=== PATIENT | female | born 1960 | race African-American/Black ===

== ENCOUNTER 2017-07-31 10:49 | Emergency (ER) | payer OTHER, MEDICAID ==
[~2017-07-31] VITALS: Ht 167.6 cm; Wt 100.0 kg
[~2017-07-31 10:49] MED LIST: HYDR-3535 PO
[2017-07-31 11:03] VITALS: BP 143/89; PULSE 103; RESP 22; TEMP 99.7; O2SAT 97
--- NOTE | 2017-07-31 11:10 | PD ---
HPI Chief Complaint: Respiratory Distress Time Seen by Provider: 11:06 Travel History International Travel<30 days: No Contact w/Intl Traveler<30days: No Traveled to known affect area: No History of Present Illness HPI 57-year-old Afro-[place] female transferred here from the [place] clinic with several day history of increasing shortness of breath and wheezing. Patient has history of COPD she only uses Ventolin when necessary. Patient states she has a "raggedy nebulizer at home". Patient states she quit smoking several years ago. Patient states she only gets like this when she has an illness. She has had some mild sore throat but no significant fever. She denies chest pain other than from coughing, no nausea, vomiting, ear pain, headache, or productive cough. Patient was given 3 nebulizers en route as well as 125 Solu- Medrol by EMS. Patient is able to speak in full sentences but has audible wheezing. She is allergic to morphine, oxycodone, prednisone. PFSH Past Medical History Arthritis: Yes Asthma: Yes Autoimmune Disease: No Blood Disorders: No Bipolar Disorder: Yes Anxiety: Yes Depression: Yes Heart Rhythm Problems: No Cancer: Yes (RT BREAST) Cardiovascular Problems: Yes High Cholesterol: No Chest Pain: Yes Congestive Heart Failure: No Cirrhosis: Yes COPD: No Cerebrovascular Accident: No Diabetes: No Diminished Hearing: No Endocrine: No Gastrointestinal Disorders: Yes GERD: Yes Genitourinary: Yes Headaches: Yes (2007) Hepatitis: Yes (C) Hiatal Hernia: No Hypertension: No Kidney Stones: No Musculoskeletal: Yes Neurologic: Yes Psychiatric: Yes (PTSD) Reproductive: No Respiratory: Yes (asthma) Migraines: No Myocardial Infarction: No Renal Failure: No Seizures: Yes (2007) Sleep Apnea: No Thyroid Disease: No Ulcer: No ?: Not Menopausal: Yes : 3 Para: 3 Miscarriage: 0 : 0 Tubal Ligation: Yes Past Surgical History Abdominal Surgery: Yes Appendectomy: No Cardiac Surgery: No Section: Yes (x3) Cholecystectomy: No Ear Surgery: No Endocrine Surgery: No Eye Surgery: No Genitourinary Surgery: No Gynecologic Surgery: Yes Hysterectomy: Yes Oral Surgery: No Thoracic Surgery: No Tonsillectomy: Yes Other Surgery: Yes Social History Alcohol Use: Yes (OCCASIONALLY) Tobacco Use: Yes (< 1/2 PPD) Substance Use: No Allergies-Medications (Allergen,Severity, Reaction): Coded Allergies: morphine (Unverified Allergy, Severe, 07/31/17) prednisone (Unverified Allergy, Severe, BLOOD PRESSURE GOES HIGH, 07/31/17 ) Influenza Virus Vaccines (Verified Allergy, Unknown, 07/31/17) oxycodone (Unverified Adverse Reaction, Severe, PSYCHOTIC REACTION, ) tramadol (Verified Adverse Reaction, Severe, Psychosis, 07/31/17) ledipasvir (Verified Adverse Reaction, Intermediate, Diarrhea, 07/31/17) sofosbuvir (Verified Adverse Reaction, Intermediate, Diarrhea, 07/31/17) NSAIDS (Non-Steroidal Anti-Inflamma (Verified Adverse Reaction, Mild, ) abd pain meloxicam (Verified Adverse Reaction, Unknown, 07/31/17) abd pain Reported Meds & Prescriptions Reported Meds & Active Scripts Active Dexamethasone 4 Mg Tab 4 Mg PO BID Azithromycin 500 Mg Tab 500 Mg PO DAILY Nebulizer 1 Mis Mis Ea .ROUTE DIRECTED Ipratropium Neb (Ipratropium [place]) 0.5 Mg/2.5 Ml Amp 0.5 Mg NEB Q6HR NEB PRN Albuterol Neb (Albuterol Sulfate) 2.5 Mg/3 Ml Neb 2.5 Mg NEB Q4HR NEB PRN Ventolin Hfa 18 GM Inh (Albuterol Sulfate) 90 Mcg/Act Aer 2 Puff INH Q4-6H PRN Flovent Hfa 12 GM Inh (Fluticasone Propionate) 220 Mcg/Act Inh 1 Puff INH BID Use daily at the same time. Reported Omeprazole 20 Mg Tab 20 Mg PO DAILY Diclo Gel Topical (Diclofenac Sodium) 1% Gel 1 Applic TOPICAL QID Symbicort Inh (Budesonide/Formoterol Fumarate) 80-4.5 Mcg/Act Aero 2 Puff INH Q12HR Quetiapine (Quetiapine Fumarate) 100 Mg Tab 100 Mg PO HS Fluoxetine (Fluoxetine HCl) 20 Mg Capsule 40 Mg PO DAILY [place] Carbonate 300 Mg Cap 300 Mg PO HS Hydrocodone-Acetaminophen 10-325 mg Tab 1 Tab PO Q6H PRN Ventolin Hfa 18 GM Inh (Albuterol Sulfate) 90 Mcg/Act Aer 2 Puff INH Q4-6H PRN Review of Systems Except as stated in HPI: all other systems reviewed are Neg General / Constitutional: No: Fever, Chills Eyes: No: Visual changes HENT: Positive: Sore Throat, Rhinitis, Rhinorrhea, Congestion, No: Headaches, Vertigo, Lightheadedness, Nosebleed, Neck Stiffness, Neck Pain, Dental Difficulties, Earache Cardiovascular: No: Chest Pain or Discomfort Respiratory: Positive: Cough, Shortness of Breath, Wheezing, Orthopnea, No: Sneezing, Hemoptysis, Stridor, Night Sweats, Pleuritic Pain Gastrointestinal: No: Abdominal Pain Genitourinary: No: Dysuria Musculoskeletal: No: Pain Skin: No Rash Neurologic: No: Weakness Psychiatric: No: Depression Endocrine: No: Polydipsia Hematologic/Lymphatic: No: Easy Bruising Physical Exam Narrative GENERAL: Patient appears in mild respiratory distress. SKIN: Warm and dry. Normal color. Normal turgor. No diaphoresis. HEAD: Atraumatic. Normocephalic. EYES: Pupils equal and round. No scleral icterus. No injection or drainage. ENT: No nasal bleeding or discharge. Mucous membranes pink and moist. TMs are clear bilaterally. No sinus tenderness to palpation or percussion. Pharynx appears unremarkable without significant erythema or obvious postnasal drip. No significant lymphadenopathy, and uvula is midline. NECK: Trachea midline. Supple and nontender. CARDIOVASCULAR: Regular rate and rhythm. RESPIRATORY: No accessory muscle use. Moderate diffuse wheezing throughout to auscultation. No rales or rhonchi. Breath sounds equal bilaterally. GASTROINTESTINAL: Abdomen soft, non-tender, nondistended. Hepatic and splenic margins not palpable. MUSCULOSKELETAL: Extremities without clubbing, cyanosis, or edema. No obvious deformities. NEUROLOGICAL: Awake and alert. No obvious cranial nerve deficits. Motor grossly within normal limits. Five out of 5 muscle strength in the arms and legs. Normal speech. PSYCHIATRIC: Appropriate mood and affect; insight and judgment normal. Data Data Last Documented VS Vital Signs Date Time Temp Pulse Resp B/P (MAP) Pulse Ox O2 Delivery O2 Flow Rate FiO2 07/31/17 11:29 98 Room Air 07/31/17 11:03 99.7 103 22 143/89 (107) Orders Orders Complete Blood Count With Diff (07/31/17 11:10) Comprehensive Metabolic Panel (07/31/17 11:10) Influenzae A/B Antigen (07/31/17 11:10) Iv Access Insert/Monitor (07/31/17 11:10) Ecg Monitoring (07/31/17 11:10) Oximetry (07/31/17 11:10) Oxygen Administration (07/31/17 11:10) Chest, Pa & Lat (07/31/17 11:10) Sodium Chloride 0.9% Flush (Ns Flush) (07/31/17 11:15) Albuterol-Ipratropium Neb (Duoneb Neb) (07/31/17 11:15) Azithromycin (Zithromax) (07/31/17 11:15) Tramadol (Ultram) (07/31/17 11:15) Ceftriaxone Inj (Rocephin Inj) (07/31/17 11:15) Acetamin-Hydrocod 325-10 Mg ([place] 10-32 (07/31/17 12:00) Labs Laboratory Tests Test 07/31/17 11:15 White Blood Count 10.4 TH/MM3 Red Blood Count 5.33 MIL/MM3 Hemoglobin 13.6 GM/DL Hematocrit 42.0 % Mean Corpuscular Volume 78.9 FL Mean Corpuscular Hemoglobin 25.5 PG Mean Corpuscular Hemoglobin Concent 32.3 % Red Cell Distribution Width 15.7 % Platelet Count 254 TH/MM3 Mean Platelet Volume 8.1 FL Neutrophils (%) (Auto) 63.2 % Lymphocytes (%) (Auto) 26.8 % Monocytes (%) (Auto) 9.0 % Eosinophils (%) (Auto) 0.7 % Basophils (%) (Auto) 0.3 % Neutrophils # (Auto) 6.6 TH/MM3 Lymphocytes # (Auto) 2.8 TH/MM3 Monocytes # (Auto) 0.9 TH/MM3 Eosinophils # (Auto) 0.1 TH/MM3 Basophils # (Auto) 0.0 TH/MM3 CBC Comment DIFF FINAL Differential Comment Blood Urea Nitrogen 16 MG/DL Creatinine 0.79 MG/DL Random Glucose 90 MG/DL Total Protein 7.7 GM/DL Albumin 3.6 GM/DL Calcium Level 8.6 MG/DL Alkaline Phosphatase 86 U/L Aspartate Amino Transf (AST/SGOT) 26 U/L Alanine Aminotransferase (ALT/SGPT) 36 U/L Total Bilirubin 0.4 MG/DL Sodium Level 140 MEQ/L Potassium Level 4.1 MEQ/L Chloride Level 103 MEQ/L Carbon Dioxide Level 31.0 MEQ/L Anion Gap 6 MEQ/L Estimat Glomerular Filtration Rate 91 ML/MIN [facility] Medical Decision Making Medical Screen Exam Complete: Yes Emergency Medical Condition: Yes Medical Record Reviewed: Yes Differential Diagnosis Acute wheezy bronchitis. COPD with exacerbation. Wheezing. Narrative Course Patient appears medically stable at time of exam. Labs ordered include CBC, CMP, and rapid influenza. Chest x-ray PA and lateral is ordered. IV access is obtained patient is given 1000 mg Rocephin IV. Patient is given azithromycin 500 mg by mouth. Patient is given DuoNeb 3. Patient has already received Solu-Medrol 125 mg IV from EMS. CBC is unremarkable with no significant leukocytosis. CMP is unremarkable. Chest x-ray is read as negative by radiologist. Rapid influenza is negative. Patient is improved after the duo nebs and Solu-Medrol. Patient will be continued on dexamethasone grams twice a day 5 days. Patient is started on Flovent HFA 1 puff twice a day. Patient is given azithromycin 500 mg daily 5 days. Patient is given a refill of her Ventolin metered-dose inhaler, 2 puffs every 4- 6 hours when necessary wheezing and shortness of breath. Patient is given a prescription for new nebulizer to be used as directed. Patient is given albuterol nebulizer unit dose vials one every 4 hours when necessary shortness of breath. Patient also given ipratropium nebulizer unit dose vials one every 6 hours when necessary #120. Patient should follow-up with the [place] clinic next week or return to emergency department if symptoms worsen as needed. Diagnosis Primary Impression: Acute wheezy bronchitis Additional Impression: COPD with acute exacerbation Referrals: [place] [facility] Patient Instructions: General Instructions Med/Other Pt SpecificInfo: Prescription(s) given Scripts Dexamethasone (Dexamethasone) 4 Mg Tab 4 MG PO BID, #10 TAB 0 Refills Prov: Lucila Cameron MD 07/31/17 Azithromycin (Azithromycin) 500 Mg Tab 500 MG PO DAILY for Infection, #5 TAB 0 Refills Prov: Lucila Cameron MD 07/31/17 Nebulizer (Nebulizer) 1 Mis Mis EA .ROUTE DIRECTED for Breathing Treatment, #1 0 Refills Prov: Lucila Cameron MD 07/31/17 Ipratropium Neb (Ipratropium Neb) 0.5 Mg/2.5 Ml Amp 0.5 MG NEB Q6HR NEB Y for SHORTNESS OF BREATH, #120 NEBULE 0 Refills Prov: Lucila Cameron MD 07/31/17 Albuterol Neb (Albuterol Neb) 2.5 Mg/3 Ml Neb 2.5 MG NEB Q4HR NEB Y for SHORTNESS OF BREATH, #60 NEBULE 0 Refills Prov: Lucila Cameron MD 07/31/17 Albuterol 18 GM Inh (Ventolin Hfa 18 GM Inh) 90 Mcg/Act Aer 2 PUFF INH Q4-6H Y for SHORTNESS OF BREATH, #1 INHALER 0 Refills Prov: Lucila Cameron MD 07/31/17 Fluticasone 12 GM Inh (Flovent Hfa 12 GM Inh) 220 Mcg/Act Inh 1 PUFF INH BID for Asthma Management, #1 INHALER 0 Refills Use daily at the same time. Prov: Lucila Cameron MD 07/31/17 Disposition: 01 DISCHARGE HOME Condition: Stable Jason Curiel Jul 31, 2017 11:10
[2017-07-31] MEDS ORDERED: VENTAER INH ×2 (11:14→12:16)
[2017-07-31] MEDS ORDERED: cefTRIAXone INJ 1,000 MG in SODIUM CHLORIDE 0.9% INJ 100 ML IV ONE (11:15)
[2017-07-31] MEDS ORDERED: SODIUM CHLORIDE 0.9% FLUSH 10 ML FLUSH IVF PRN (11:15)
[2017-07-31] MEDS ORDERED: AZITHROMYCIN 250 MG TAB PO ONE (11:15)
[2017-07-31] MEDS ORDERED: traMADol HCL 50 MG TAB PO ONE (11:15)
[2017-07-31 11:31] LABS: AUTOMATED NEUTROPHIL # 6.6 TH/MM3 (1.8-7.7); BASOPHIL % 0.3 % (0.0-2.0); EOSINOPHIL # 0.1 TH/MM3 (0-0.4); EOSINOPHIL % 0.7 % (0.0-4.0); HEMO FLAGS DIFF FINAL; LYMPH % 26.8 % (9.0-44.0); LYMPHOCYTE # 2.8 TH/MM3 (1.0-4.8); MEAN CELL VOLUME 78.9 FL (80.0-100.0); MEAN CORPUSCULAR HEMOGLOBIN 25.5 PG (27.0-34.0); MEAN CORPUSCULAR HGB CONC 32.3 % (32.0-36.0); NEUT % 63.2 % (16.0-70.0); PLATELET COUNT 254 TH/MM3 (150-450); RED BLOOD COUNT 5.33 MIL/MM3 (4.00-5.30); RED CELL DISTRIBUTION WIDTH 15.7 % (11.6-17.2); WHITE BLOOD COUNT 10.4 TH/MM3 (4.0-11.0)
[2017-07-31] MEDS ORDERED: QUET1TAB8 PO (11:36)
[2017-07-31] MEDS ORDERED: SYMB80AE INH (11:36)
[2017-07-31] MEDS ORDERED: FLUO20CA12 PO (11:36)
[2017-07-31] MEDS ORDERED: LITH300C2 PO (11:36)
[2017-07-31] MEDS ORDERED: DICL1KIT5 TOPICAL (11:36)
[2017-07-31] MEDS ORDERED: HYDR-3583 PO (11:36)
[2017-07-31] MEDS ORDERED: OMEP20TA93 PO (11:36)
--- NOTE | 2017-07-31 11:41 | RADRPT ---
EXAM DATE/TIME: 07/31/2017 11:26 [place] COMPARISON: No previous studies available for comparison. INDICATIONS : Short of breath. MEDICAL HISTORY : Asthma SURGICAL HISTORY : None. ENCOUNTER: Initial ACUITY: 1 day PAIN SCORE: 0/10 LOCATION: Bilateral chest FINDINGS: PA and lateral views of the chest demonstrate the lungs to be symmetrically aerated without evidence of mass, infiltrate or effusion. The cardiomediastinal contours are unremarkable. Osseous structure s are intact. CONCLUSION: Normal examination. Raul Wheeler MD on July 31, 2017 at 11:38 Board Certified Radiologist. This report was verified electronically.
[2017-07-31] MEDS: RESP: ALBUTEROL 2.5 MG/IPRATROPIUM 0.5 MG NEB (SCH) INH ×3 (11:45→11:48)
[2017-07-31 11:47] LABS: ALT (GPT) 36 U/L (10-53); ANION GAP 6 MEQ/L (5-15); AST (GOT) 26 U/L (15-37); BLOOD UREA NITROGEN 16 MG/DL (7-18); CHLORIDE 103 MEQ/L (98-107); GLOMERULAR FILTRATION RATE 91 ML/MIN (>89); POTASSIUM 4.1 MEQ/L (3.5-5.1); SODIUM (NA) 140 MEQ/L (136-145)
[2017-07-31 11:50] LABS: ALKALINE PHOSPHATASE 86 U/L (45-117); TOTAL BILIRUBIN ADULT 0.4 MG/DL (0.2-1.0)
[2017-07-31] MEDS ORDERED: ACETAMINOPHEN/HYDROcodone 325 MG/10 MG TAB PO ONE (12:00)
[2017-07-31] MEDS ORDERED: ALBU0.08 NEB (12:16)
[2017-07-31] MEDS ORDERED: FLUTI220I INH (12:16)
[2017-07-31] MEDS ORDERED: NEBULIZER1 MI1 ×2 (12:16→12:17)
[2017-07-31] MEDS ORDERED: IPRA0.02 NEB (12:16)
[2017-07-31] MEDS ORDERED: DEXA4TAB PO (12:17)
[2017-07-31] MEDS ORDERED: AZIT500T2 PO (12:17)
--- NOTE | 2017-07-31 12:32 | PD ---
Physical Exam Date Seen by Provider: Jul 31, 2017 Narrative Patient presents with a COPD exacerbation Data Data Last Documented VS Vital Signs Date Time Temp Pulse Resp B/P (MAP) Pulse Ox O2 Delivery O2 Flow Rate FiO2 07/31/17 11:29 98 Room Air 07/31/17 11:03 99.7 103 22 143/89 (107) Orders Orders Complete Blood Count With Diff (07/31/17 11:10) Comprehensive Metabolic Panel (07/31/17 11:10) Influenzae A/B Antigen (07/31/17 11:10) Iv Access Insert/Monitor (07/31/17 11:10) Ecg Monitoring (07/31/17 11:10) Oximetry (07/31/17 11:10) Oxygen Administration (07/31/17 11:10) Chest, Pa & Lat (07/31/17 11:10) Sodium Chloride 0.9% Flush (Ns Flush) (07/31/17 11:15) Albuterol-Ipratropium Neb (Duoneb Neb) (07/31/17 11:15) Azithromycin (Zithromax) (07/31/17 11:15) Tramadol (Ultram) (07/31/17 11:15) Ceftriaxone Inj (Rocephin Inj) (07/31/17 11:15) Acetamin-Hydrocod 325-10 Mg ([place] 10-32 (07/31/17 12:00) Labs Laboratory Tests Test 07/31/17 11:15 White Blood Count 10.4 TH/MM3 Red Blood Count 5.33 MIL/MM3 Hemoglobin 13.6 GM/DL Hematocrit 42.0 % Mean Corpuscular Volume 78.9 FL Mean Corpuscular Hemoglobin 25.5 PG Mean Corpuscular Hemoglobin Concent 32.3 % Red Cell Distribution Width 15.7 % Platelet Count 254 TH/MM3 Mean Platelet Volume 8.1 FL Neutrophils (%) (Auto) 63.2 % Lymphocytes (%) (Auto) 26.8 % Monocytes (%) (Auto) 9.0 % Eosinophils (%) (Auto) 0.7 % Basophils (%) (Auto) 0.3 % Neutrophils # (Auto) 6.6 TH/MM3 Lymphocytes # (Auto) 2.8 TH/MM3 Monocytes # (Auto) 0.9 TH/MM3 Eosinophils # (Auto) 0.1 TH/MM3 Basophils # (Auto) 0.0 TH/MM3 CBC Comment DIFF FINAL Differential Comment Blood Urea Nitrogen 16 MG/DL Creatinine 0.79 MG/DL Random Glucose 90 MG/DL Total Protein 7.7 GM/DL Albumin 3.6 GM/DL Calcium Level 8.6 MG/DL Alkaline Phosphatase 86 U/L Aspartate Amino Transf (AST/SGOT) 26 U/L Alanine Aminotransferase (ALT/SGPT) 36 U/L Total Bilirubin 0.4 MG/DL Sodium Level 140 MEQ/L Potassium Level 4.1 MEQ/L Chloride Level 103 MEQ/L Carbon Dioxide Level 31.0 MEQ/L Anion Gap 6 MEQ/L Estimat Glomerular Filtration Rate 91 ML/MIN MDM Supervised Visit with ROMULO: Yes Narrative Course I, Dr. Cameron, have reviewed the advance practice practitioner's documentation and am in agreement, met with the patient face to face, made the diagnosis, and the medical decision making was done by me. *My assessment and Findings: Patient is no distress. She states seen on her phone as I examine her. Her lungs have good air movement and diffuse expiratory wheezing. Please see Benjamin Curiel PA-C's note for results of laboratory and radiographic evaluation, ED course, final diagnosis and disposition Scripts Dexamethasone (Dexamethasone) 4 Mg Tab 4 MG PO BID, #10 TAB 0 Refills Prov: Lucila Cameron MD 07/31/17 Azithromycin (Azithromycin) 500 Mg Tab 500 MG PO DAILY for Infection, #5 TAB 0 Refills Prov: Lucila Cameron MD 07/31/17 Nebulizer (Nebulizer) 1 Mis Mis EA .ROUTE DIRECTED for Breathing Treatment, #1 0 Refills Prov: Lucila Cameron MD 07/31/17 Ipratropium Neb (Ipratropium Neb) 0.5 Mg/2.5 Ml Amp 0.5 MG NEB Q6HR NEB Y for SHORTNESS OF BREATH, #120 NEBULE 0 Refills Prov: Lucila Cameron MD 07/31/17 Albuterol Neb (Albuterol Neb) 2.5 Mg/3 Ml Neb 2.5 MG NEB Q4HR NEB Y for SHORTNESS OF BREATH, #60 NEBULE 0 Refills Prov: Lucila Cameron MD 07/31/17 Albuterol 18 GM Inh (Ventolin Hfa 18 GM Inh) 90 Mcg/Act Aer 2 PUFF INH Q4-6H Y for SHORTNESS OF BREATH, #1 INHALER 0 Refills Prov: Lucila Cameron MD 07/31/17 Fluticasone 12 GM Inh (Flovent Hfa 12 GM Inh) 220 Mcg/Act Inh 1 PUFF INH BID for Asthma Management, #1 INHALER 0 Refills Use daily at the same time. Prov: Lucila Cameron MD 07/31/17 Lucila Cameron MD Jul 31, 2017 12:32
== END 2017-07-31 13:02 | disposition home or self-care (01) ==
LOC: NEPE 10:49
DX: J20.9 Acute bronchitis, unspecified (principal); R06.2 Wheezing; J44.1 Chronic obstructive pulmonary disease with (acute) exacerbation; R07.0 Pain in throat; M19.90 Unspecified osteoarthritis, unspecified site; F31.9 Bipolar disorder, unspecified; F41.8 Other specified anxiety disorders; K74.60 Unspecified cirrhosis of liver; K21.9 Gastro-esophageal reflux disease without esophagitis; Z85.3 Personal history of malignant neoplasm of breast; Z86.79 Personal history of other diseases of the circulatory system; Z87.448 Personal history of other diseases of urinary system; Z86.69 Personal history of other diseases of the nervous system and sense organs; Z86.19 Personal history of other infectious and parasitic diseases
CPT/HCPCS: 71020; 80053; 85025; 87804; 94664; 96365; 99284; J0696

== ENCOUNTER 2018-03-16 03:13 | Observation (INO) ==
[2018-03-16] MEDS ORDERED: Sodium Chlor 0.9% Inj 500 ML IV.SIG ONE (04:44)
--- NOTE | 2018-03-16 05:14 | XR ---
EXAM DATE: 03/16/2018 5:09 AM EDT AGE/SEX: 57 years / Female INDICATIONS: Chest pain. CLINICAL DATA: This is the patient's initial encounter. Patient reports that signs and symptoms have been present for 1 day and indicates a pain score of 7/10. MEDICAL/SURGICAL HISTORY: Asthma. None. COMPARISON: [facility] [place], CHEST PA & LAT, 07/31/2017. . FINDINGS: A single AP view of the chest demonstrates the lungs to be symmetrically aerated without evidence of mass, infiltrate or effusion. The cardiomediastinal contours are unremarkable. Osseous structures a re intact. CONCLUSION: Negative examination. Electronically signed by: Garth Hickey MD 03/16/2018 5:13 AM EDT
--- NOTE | 2018-03-16 05:36 | CT ---
EXAM DATE: 03/16/2018 5:27 AM EDT AGE/SEX: 57 years / Female INDICATIONS: Trauma; patient fell 2 days ago. CLINICAL DATA: This is the patient's initial encounter. Patient reports that signs and symptoms have been present for 2 days and indicates a pain score of 5/10. MEDICAL/SURGICAL HISTORY: None. None. RADIATION DOSE: 22.34 CTDI (mGy) COMPARISON: No prior exams available for comparison. TECHNIQUE: Contiguous axial images were obtained using helical multirow detector technique. The vol umetric data was post-processed with multiplanar reconstruction in oblique axial, sagittal, and coron al planes. Using automated exposure control and adjustment of the mA and/or kV according to patient s ize, radiation dose was kept as low as reasonably achievable to obtain optimal diagnostic quality michael ges. DICOM format image data is available electronically for review and comparison. FINDINGS: Alignment normal. Mild anterior osteophyte formation at C5 and C6. No prevertebral soft tissue swelli ng or compression deformity. There is no canal stenosis. Odontoid process is intact. CONCLUSION: 1. Mild degenerative changes. Electronically signed by: Garth Hickey MD 03/16/2018 5:35 AM EDT
--- NOTE | 2018-03-16 05:36 | CT ---
EXAM DATE: 03/16/2018 5:25 AM EDT AGE/SEX: 57 years / Female INDICATIONS: Trauma; patient fell 2 days ago. CLINICAL DATA: This is the patient's initial encounter. Patient reports that signs and symptoms have been present for 2 days and indicates a pain score of 5/10. MEDICAL/SURGICAL HISTORY: None. None. RADIATION DOSE: 65.28 CTDI (mGy) COMPARISON: No prior exams available for comparison. TECHNIQUE: CT of the head without contrast. Using automated exposure control and adjustment of the mA and/or kV according to patient size, radiation dose was kept as low as reasonably achievable to ob tain optimal diagnostic quality images. DICOM format image data is available electronically for revi ew and comparison. FINDINGS: Cerebrum: The ventricles are normal for age. No evidence of midline shift, mass lesion, hemorrhage or acute infarction. No extraaxial fluid collections are seen. A cavum septum pellucidum et vergae i dentified. Posterior Fossa: The cerebellum and brainstem are intact. The 4th ventricle is midline. The cerebe llopontine angle is unremarkable. Extracranial: The visualized portion of the orbits is intact. Skull: The calvaria is intact. No evidence of skull fracture. CONCLUSION: 1. No acute findings. . Electronically signed by: Garth Hickey MD 03/16/2018 5:35 AM EDT
[2018-03-16] MEDS ORDERED: Sod Chloride 0.9% Inj 1,000 ML IV.SIG ONE (05:42)
[2018-03-16] MEDS ORDERED: Pantoprazole Inj 40 MG Vial IV.PUSH ONE (05:42)
[2018-03-16 05:57] LABS: Baso % (Auto) 0.6 % (0.0-2.0); Eos # (Auto) 0.1 th/mm3 (0.0-0.4); Eos % (Auto) 1.5 % (0.0-4.0); Hematocrit 42.4 % (35.0-46.0); Hemoglobin 13.8 gm/dL (11.6-15.3); Lymph # (Auto) 2.9 th/mm3 (1.0-4.8); Lymph % (Auto) 48.7 % (9.0-44.0); Mean Corpuscular HGB Conc 32.6 % (32.0-36.0); Mean Corpuscular Hemoglobin 26.4 pg (27.0-34.0); Mean Platelet Volume 8.1 fL (7.0-11.0); Mono # (Auto) 0.4 th/mm3 (0.0-0.9); Neut # (Auto) 2.5 th/mm3 (1.8-7.7); Neut % (Auto) 42.2 % (16.0-70.0); Platelet Count 294 th/mm3 (150-450); Red Blood Count 5.24 mil/mm3 (4.00-5.30); Red Cell Distribution Width 16.1 % (11.6-17.2); White Blood Count 5.9 th/mm3 (4.0-11.0)
[2018-03-16 06:06] LABS: INR 1.1 Ratio; Prothrombin Time 10.7 sec (9.8-11.6)
[2018-03-16 06:10] VITALS: BP 164/63; PULSE 83; RESP 19; TEMP 98.5; O2SAT 99
[2018-03-16 06:12] LABS: Alanine Aminotransferase 23 U/L (10-53); Albumin 3.1 g/dL (3.4-5.0); Anion Gap 6 meq/L (5-15); Aspartate Aminotransferase 28 U/L (15-37); Blood Urea Nitrogen 12 mg/dL (7-18); Calcium 8.1 mg/dL (8.5-10.1); Chloride 108 meq/L (98-107); Glomerular Filtration Rate 88 mL/min (>89); Glucose,Random 81 mg/dL (74-106); Lipase 122 U/L (73-393); Potassium 4.2 meq/L (3.5-5.1); Sodium 141 meq/L (136-145)
[2018-03-16 06:16] LABS: Alkaline Phosphatase 80 U/L (45-117); Creatine Kinase 153 U/L (26-192)
--- NOTE | 2018-03-16 07:07 | ED ---
HPI General Chief complaint: Fall Stated complaint: fall head/shoulder/arm pain / pain when urinating Time Seen by Provider: 03/16/18 04:43 History of Present Illness HPI narrative: The patient is a 57 year old female who presents to the [facility] emergency department with a history of falling at approximately 8:30 AM on Friday morning. The patient reports that she has a history of a left knee replacement and was sitting on a higher stool. She reports that when she got down her left knee seem to give out causing her to fall onto her right side. She reports that she hit the right side of her head. She denies having any loss of consciousness. She reports that she had her right lateral shoulder. She reports having right-sided upper back pain. She denies having any numbness or tingling to her extremities. She denies having any weakness of her extremities. She does however report that since Friday morning she has had nausea, chest pain in the center of her chest and shortness of breath. She reports that the symptoms feel like she needs to belch. She reports having indigestion associated with this. She reports that she does have a history of acid reflux and tried taking her medication for this without relief. She denies any prior history of cardiac disease. She reports that she does smoke 4- 5 cigarettes per day. She denies any prior history of hypertension, diabetes, or hyperlipidemia. She reports that she has had a stress test in the past, however it was last done in 2013. She reports that she is followed by the [facility] for her primary care. She reports having nausea without vomiting. She denies having any diarrhea. She reports that she has in fact been slightly constipated with only having a small harder bowel movement this morning. On review of systems otherwise, the patient denies having any known recent fevers, cough or congestion, abdominal pain, urinary symptoms, or neurologic symptoms. Related Data Home Medications Medication Instructions Recorded Confirmed omeprazole 40 mg PO DAILY 03/16/18 03/16/18 Allergies Allergy/AdvReac Type Severity Reaction Status Date / Time morphine Allergy Severe Itching Verified 03/16/18 05:57 prednisone Allergy Severe BLOOD Verified 03/16/18 05:57 PRESSURE GOES HIGH Influenza Virus Vaccines Allergy Unknown Shortness Verified 03/16/18 05:57 of Breath oxycodone AdvReac Severe PSYCHOTIC Verified 03/16/18 05:57 REACTION tramadol AdvReac Severe Psychosis Verified 03/16/18 05:57 ledipasvir AdvReac Intermediate Diarrhea Verified 03/16/18 05:57 sofosbuvir AdvReac Intermediate Diarrhea Verified 03/16/18 05:57 NSAIDS (Non-Steroidal AdvReac Mild Nausea/Vomi Verified 03/16/18 05:57 Anti-Inflamma ting meloxicam AdvReac Unknown Gastrointestinal Verified 03/16/18 05:57 Upset Review of Systems ROS Unobtainable All other systems reviewed negative except as stated in HPI [facility] Medical History Medical History Asthma (Acute) GERD (gastroesophageal reflux disease) (Acute) H/O: hysterectomy (Acute) Surgical History Surgical History History of knee replacement (Acute) History of tonsillectomy (Acute) Social History Social History Substance History: No History of Abuse Second Hand Smoke Exposure: Yes Smoking Status: Current every day smoker Tobacco Type: Cigarettes Cigarettes Per Day: 5 How Often Do You Have a Drink Containing Alcohol: Monthly or less Immunization History Tetanus Immunization: >5 Years Hx Influenza Vaccine This Season: No Exam Const General: cooperative, no acute distress and well developed Nutritional Appearance: well nourished Orientation: alert, awake and oriented x3 HENMT Head: normocephalic and atraumatic Nose: no nasal discharge and no epistaxis Mouth: moist mucous membranes Eyes Sclera: normal sclerae Pupils: PERRL Neck Neck: normal visual inspection (The patient reports having right-sided trapezius pain on palpation. No spinous process tenderness to palpation. No step-off or crepitus. No erythema or ecchymosis.), no meningeal signs and no midline deformity Resp Effort & Inspection: no use of accessory muscles Auscultation: clear to auscultation bilaterally Cardio Rate: regular rate Rhythm: regular rhythm Heart Sounds: no murmurs GI Inspection: non-distended Palpation: soft, no hepatosplenomegaly and nontender Back/Spine/Pelvis Back: no CVA tenderness Thoracic/Lumbar Spine: No thoracic spinal tenderness and No lumbar spinal tenderness Pelvis: no pain with anterior-posterior compression Skin General: dry skin (warm) Neuro General: alert, awake and oriented x3 Cranial Nerves: CN's II-XI intact bilaterally Speech: speech normal Motor: no movement abnormalities noted Sensory Exam: no sensory deficits noted Extrem General: normal to inspection, full ROM (The patient does however report having right lateral upper arm pain. There is no erythema or ecchymosis noted. Soft compartments noted. Full range of motion of the elbow, wrist, hand. Less than 3 second capillary refill. Intact sensation over all fingertips.), no clubbing , no cyanosis and no edema Psych Mood: congruent mood Affect: normal affect Judgment: judgment good Course Initial Documented Vital Signs Temperature 98.5 F 03/16/18 03:58 Pulse Rate 83 03/16/18 03:58 Respiratory Rate 19 03/16/18 03:58 Blood Pressure 164/63 H 03/16/18 03:58 Pulse Oximetry 100 03/16/18 03:58 Last Documented Vital Signs Temperature 98.5 F 03/16/18 03:58 Pulse Rate 83 03/16/18 03:58 Respiratory Rate 19 03/16/18 03:58 Blood Pressure 164/63 H 03/16/18 03:58 Pulse Oximetry 99 03/16/18 05:44 Medical Decision Making MDM Narrative Medical decision making narrative: During the course of the patient's emergency department visit, the patient's history, examination, and differential diagnosis were reviewed with the patient. The patient was placed on a due diligence coordinator with oximetry and frequent blood pressure monitoring. The patient had IV access obtained and blood work sent for analysis. A diagnostic evaluation was started regarding the patient's reported nausea, chest pain, shortness of breath. Patient incidentally also reports having a headache with a history of head injury on Friday morning. CT scan of the head and neck was ordered. The patient was initially provided normal saline IV fluids, Protonix 40 mg IV, Zofran 4 mg p.o. 1 for nausea. The patient's diagnostic evaluation was remarkable for a white count of 5.9, platelets 294, lymphocytosis at 48.7, hemoglobin 13.8.PT 10.7, PTT 25, chemistry is remarkable for a troponin I of less than 0.02, lipase 122, GFR of 88, chloride 108, BUN, calcium 8.1, albumin 3.1. Chest x-ray shows no acute abnormality, CT scan of the brain showed no acute abnormality, CT scan of the C-spine shows mild degenerative changes, no other acute abnormality. The patient was agreeable with the plan to proceed with admission to the chest pain center for rule out serial cardiac enzyme protocol followed by consideration of stress testing given her current symptoms. The patient's results were discussed with the patient, including the plan of care. I explained that further testing and/ or monitoring is indicated based on the patient's history, examination, and/ or laboratory findings. Therefore, I recommended admission for additional evaluation. The patient expressed understanding and was agreeable with this plan. The patient was admitted to the hospital in stable condition and sent to a bed under the care of the [facility]. Differential Diagnosis Differential Diagnosis: Acute coronary syndrome, versus acid reflux, versus pneumothorax, versus rib fracture, versus pulmonary contusion Medical Records Medical records reviewed: Yes I reviewed the patient's medical records. Lab Data Lab results reviewed: Yes I reviewed the patient's lab results. Result diagrams: 03/16/18 05:40 03/16/18 05:40 Lab Results 03/16/18 03/16/18 03/16/18 Range/Units 05:40 05:40 05:40 WBC 5.9 (4.0-11.0) th/mm3 RBC 5.24 (4.00-5.30) mil/mm3 Hgb 13.8 (11.6-15.3) gm/dL Hct 42.4 (35.0-46.0) % MCV 81.0 (80.0-100.0) fL MCH 26.4 L (27.0-34.0) pg MCHC 32.6 (32.0-36.0) % RDW 16.1 (11.6-17.2) % Plt Count 294 (150-450) th/mm3 MPV 8.1 (7.0-11.0) fL Neut % (Auto) 42.2 (16.0-70.0) % Lymph % (Auto) 48.7 H (9.0-44.0) % Fall[place] % (Auto) 7.0 (0.0-8.0) % Eos % (Auto) 1.5 (0.0-4.0) % Baso % (Auto) 0.6 (0.0-2.0) % Neut # (Auto) 2.5 (1.8-7.7) th/mm3 Lymph # (Auto) 2.9 (1.0-4.8) th/mm3 Fallon # (Auto) 0.4 (0.0-0.9) th/mm3 Eos # (Auto) 0.1 (0.0-0.4) th/mm3 Baso # (Auto) 0.0 (0.0-0.2) th/mm3 WBC Differential . Differential Comment Auto diff final PT 10.7 (9.8-11.6) sec INR 1.1 Ratio APTT 25.0 (24.3-30.1) sec Sodium 141 (136-145) meq/L Potassium 4.2 (3.5-5.1) meq/L Chloride 108 H (98-107) meq/L Carbon Dioxide 27.0 (21.0-32.0) meq/L Anion Gap 6 (5-15) meq/L BUN 12 (7-18) mg/dL Creatinine 0.82 (0.50-1.00) mg/dL Estimated GFR 88 L (>89) mL/min Random Glucose 81 (74-106) mg/dL Calcium 8.1 L (8.5-10.1) mg/dL Magnesium 2.0 (1.5-2.5) mg/dL Total Bilirubin 0.5 (0.2-1.0) mg/dL AST 28 (15-37) U/L ALT 23 (10-53) U/L Alkaline Phosphatase 80 (45-117) U/L Total Creatine Kinase 153 (26-192) U/L CK-MB (CK-2) Less than 1.0 (0.5-3.6) ng/mL Troponin I Less than 0.02 L (0.02-0.05) ng/mL Total Protein 7.0 (6.4-8.2) g/dL Albumin 3.1 L (3.4-5.0) g/dL Lipase 122 (73-393) U/L Imaging Data Radiologist's impression: Chest X-Ray 03/16/18 04:44 CONCLUSION: Negative examination. Cervical Spine CT 03/16/18 04:46 CONCLUSION: 1. Mild degenerative changes. Head CT 03/16/18 04:46 CONCLUSION: 1. No acute findings. . ECG Data Attestation: I personally reviewed and interpreted this ECG as follows: Interpretation: The patient had an EKG done on arrival. The patient's EKG showed no acute ST segment changes. Discharge Plan Discharge Disposition Patient Disposition: 30 Still Patient Physicians Team ED Provider: Josey Pacheco Primary Care Provider: Maged Santacruz V Attending Provider: Bao Radford Status ED Status: Admitted Observation Patient
[2018-03-16] MEDS ORDERED: Acetaminophen 500 MG Tablet PO PRN (08:08)
--- NOTE | 2018-03-16 08:08 | P.HPCA ---
History of Present Illness Primary Care Physician: Maged Santacruz MD Chief Complaint: Chest pain History of Present Illness: 57 year old female with history of asthma, GERD, and current smoker presents to Er for further evaluation of chest pain. Onset last evening after falling from a high top chair. Reports issues with left knee since replaced in 2013, causing her to lose her balance. No prior chest discomfort, dyspnea, or any issues prior to fall. Location right anterior chest. Fell onto her right side. No radiation of pain, but also experiencing mid to low back pain. Duration constant since fall. No past CAD, no hypertension or diabetes. Family history noncontributory for early onset cardiovascular disease. - Diagnosis (1) Chest pain, atypical (2) Tobacco abuse (3) H/O gastroesophageal reflux (GERD) Review of Systems All other systems reviewed negative except as stated in HPI [facility] - History History Provided By: Patient - Medical History Medical History: Medical History (Last Updated 03/16/18 @ 08:11 by Josey Pacheco MD) Asthma GERD (gastroesophageal reflux disease) H/O: hysterectomy - Surgical History Surgical History: Surgical History (Last Updated 03/16/18 @ 08:11 by Josey Pacheco MD) History of knee replacement History of tonsillectomy - Tobacco History Second Hand Smoke Exposure: Yes Tobacco Use In Past 30 Days: Yes Smoking Status: Current every day smoker Tobacco Type: Cigarettes - Alcohol History How Often Do You Have a Drink Containing Alcohol: Monthly or less - Substance Use History Substance History: No History of Abuse - Immunization History Tetanus Immunization: >5 Years Hx Influenza Vaccine This Season: No Medications and Allergies Active Medications: Active Medications Sodium Chloride (Ns Flush) 2 ml IV.FLUSH UNSCH PRN PRN Reason: FLUSH AFTER USING IV ACCESS Last Admin: 03/16/18 05:43 Dose: 2 ml Allergies Allergy/AdvReac Type Severity Reaction Status Date / Time morphine Allergy Severe Itching Verified 03/16/18 05:57 prednisone Allergy Severe BLOOD Verified 03/16/18 05:57 PRESSURE GOES HIGH Influenza Virus Vaccines Allergy Unknown Shortness Verified 03/16/18 05:57 of Breath oxycodone AdvReac Severe PSYCHOTIC Verified 03/16/18 05:57 REACTION tramadol AdvReac Severe Psychosis Verified 03/16/18 05:57 ledipasvir AdvReac Intermediate Diarrhea Verified 03/16/18 05:57 sofosbuvir AdvReac Intermediate Diarrhea Verified 03/16/18 05:57 NSAIDS (Non-Steroidal AdvReac Mild Nausea/Vomi Verified 03/16/18 05:57 Anti-Inflamma ting meloxicam AdvReac Unknown Gastrointestinal Verified 03/16/18 05:57 Upset Home Medications Medication Instructions Recorded Confirmed Type omeprazole 40 mg PO DAILY 03/16/18 03/16/18 History Exam Vital signs: Vital Signs 03/16/18 03:58 03/16/18 05:44 Temperature 98.5 F Pulse Rate 83 Respiratory Rate 19 Blood Pressure 164/63 H Pulse Oximetry 100 99 Intake & Output 03/15/18 03/16/18 03/16/18 18:59 06:59 18:59 Weight 84.1 kg Narrative: GENERAL: Alert WN, WD, NAD, very pleasant, overweight, -[place] female HEAD: NC, AT NECK: Supple, no masses, trachea midline CV: RRR, without murmur, rub, gallop, no JVD. RESP: Clear lungs throughout bilateral, no crackles, wheeze, rhonchi, symmetrical chest rise, nonlabored, able to speak in full sentences ABD: Soft, NT, ND, no masses, positive bowel tones EXT: Pulses +2x4, no dependent edema MS: Normal tone x4 extremities, nontender, no obvious deformities, full range of motion NEURO: CN II through CN XII grossly intact, motor strength 5/5 PSYCH: A+O x3, pleasant affect, appropriate speech, mood, insight and judgment SKIN: Normal turgor, normal texture, no lesions, no rashes, brisk cap refill, even hair distribution Results 03/16/18 05:40 03/16/18 05:40 Cardiac Enzymes 03/16/18 Range/Units 05:40 AST 28 (15-37) U/L CK-MB (CK-2) Less than 1.0 (0.5-3.6) ng/mL Troponin I Less than 0.02 L (0.02-0.05) ng/mL Coagulation 03/16/18 Range/Units 05:40 PT 10.7 (9.8-11.6) sec APTT 25.0 (24.3-30.1) sec CBC 03/16/18 Range/Units 05:40 WBC 5.9 (4.0-11.0) th/mm3 RBC 5.24 (4.00-5.30) mil/mm3 Hgb 13.8 (11.6-15.3) gm/dL Hct 42.4 (35.0-46.0) % Plt Count 294 (150-450) th/mm3 Neut # (Auto) 2.5 (1.8-7.7) th/mm3 Lymph # (Auto) 2.9 (1.0-4.8) th/mm3 Dunn # (Auto) 0.4 (0.0-0.9) th/mm3 Eos # (Auto) 0.1 (0.0-0.4) th/mm3 Baso # (Auto) 0.0 (0.0-0.2) th/mm3 Comprehensive Metabolic Panel 03/16/18 Range/Units 05:40 Sodium 141 (136-145) meq/L Potassium 4.2 (3.5-5.1) meq/L Chloride 108 H (98-107) meq/L Carbon Dioxide 27.0 (21.0-32.0) meq/L BUN 12 (7-18) mg/dL Creatinine 0.82 (0.50-1.00) mg/dL Calcium 8.1 L (8.5-10.1) mg/dL AST 28 (15-37) U/L ALT 23 (10-53) U/L Alkaline Phosphatase 80 (45-117) U/L Total Protein 7.0 (6.4-8.2) g/dL Albumin 3.1 L (3.4-5.0) g/dL Intake and Output 03/15/18 03/16/18 03/16/18 22:59 06:59 14:59 Other: Weight 84.1 kg EKG interpretations - EKG EKG results cardiology: sinus rhythm, normal axis, normal QRS, normal ST/T Caprini VTE Risk Assessment Caprini VTE Risk Assessment: No/Low Risk (score <= 1) Caprini Risk Assessment Model: Point Value = 1 Point Value = 2 Point Value = 3 Point Value = 5 Age 41-60 Minor surgery BMI > 25 kg/m2 Swollen legs Varicose veins or History of unexplained or recurrent spontaneous Oral contraceptives or hormone replacement Sepsis (< 1 month) Serious lung disease, including pneumonia (< 1 month) Abnormal pulmonary function Acute myocardial infarction Congestive heart failure (< 1 month) History of inflammatory bowel disease Medical patient at bed rest Age 61-74 Arthroscopic surgery Major open surgery (> 45 min) Laparoscopic surgery (> 45 min) Malignancy Confined to bed (> 72 hours) Immobilizing plaster cast Central venous access Age >= 75 History of VTE Family history of VTE Factor V Leiden Prothrombin [id number] Lupus anticoagulant Anticardiolipin antibodies Elevated serum homocysteine Heparin-induced thrombocytopenia Other congenital or acquired thrombophilia Stroke (< 1 month) Elective arthroplasty Hip, pelvis, or leg fracture Acute spinal cord injury (< 1 month) Prophylaxis Regimen: Total Risk Factor Score Risk Level Prophylaxis Regimen 0-1 Low Early ambulation 2 Moderate Order ONE of the following: *Sequential Compression Device (SCD) *Heparin 5000 units SQ BID 3-4 Higher Order ONE of the following medications: *Heparin 5000 units SQ TID *Enoxaparin/Lovenox 40 mg SQ daily (WT < 150 kg, CrCl > 30 mL/min) *Enoxaparin/Lovenox 30 mg SQ daily (WT < 150 kg, CrCl > 10-29 mL/min) *Enoxaparin/Lovenox 30 mg SQ BID (WT < 150 kg, CrCl > 30 mL/min) AND/OR *Sequential Compression Device (SCD) 5 or more Highest Order ONE of the following medications: *Heparin 5000 units SQ TID (Preferred with Epidurals) *Enoxaparin/Lovenox 40 mg SQ daily (WT < 150 kg, CrCl > 30 mL/min) *Enoxaparin/Lovenox 30 mg SQ daily (WT < 150 kg, CrCl > 10-29 mL/min) *Enoxaparin/Lovenox 30 mg SQ BID (WT < 150 kg, CrCl > 30 mL/min) AND *Sequential Compression Device (SCD) Assessment and Plan - Assessment (1) Chest pain, atypical Code(s): R07.89 - Other chest pain Status: Acute Plan: Admitted to chest pain center. Seen and evaluated by Dr. Bao Radford. Pain began after falling yesterday. Initial EKG and troponin unremarkable. Proceed with Lexiscan this morning. If unremarkable, plans to discharge home this afternoon. (2) Tobacco abuse Code(s): Z72.0 - Tobacco use Status: Chronic Plan: Strongly encouraged and stressed importance of tobacco cessation. Instructed to quit smoking. (3) H/O gastroesophageal reflux (GERD) Code(s): Z87.19 - Personal history of other diseases of the digestive system Status: Chronic Plan: Continue omeprazole.
[2018-03-16 10:01] LABS: Bilirubin,Urine Negative (Negative); Clarity,Urine Clear (Clear); Color,Urine Yellow (Yellw/Straw); Glucose,Urine (UA) Negative (Negative); Leukocyte Esterase,Urine Small (Negative); Nitrite,Urine Negative (Negative); PH,Urine 7.5 (5.0-8.5)
[2018-03-16 10:02] LABS: Specific Gravity,Urine 1.012 (1.002-1.035)
[2018-03-16 10:53] LABS: Amorphous Sediment,Urine Few /hpf; RBC,Urine 0-3 /hpf (0-3)
[2018-03-16 10:54] LABS: Bacteria,Urine Many /hpf
== END 2018-03-16 09:35 | disposition left against medical advice (07) ==
LOC: NEDA 03:13 → NEPC 03:13 → NEDA 09:30
PROVIDERS: ADMIT Internal Medicine Cardiovascular Disease; ATTEND Internal Medicine Cardiovascular Disease
DX: M25.78 Osteophyte, vertebrae; K59.00 Constipation, unspecified; K21.9 Gastro-esophageal reflux disease without esophagitis; F17.210 Nicotine dependence, cigarettes, uncomplicated; M54.6 Pain in thoracic spine; J45.909 Unspecified asthma, uncomplicated; M54.5 Low back pain; R07.89 Other chest pain; W07.XXXA Fall from chair, initial encounter